=== PATIENT | female | born 1950 | race Caucasian/White ===

== ENCOUNTER → 2018-07-14 10:14 | Outpatient (CLI) | payer MEDICARE, SELFPAY ==
--- NOTE | 2018-07-14 | DI.CT.S_ITS ---
PROCEDURE: CT SINUS SCREEN WO CON INDICATIONS: SINUS PRESSURE TECHNIQUE: Noncontrast 3.0 mm axial images acquired from the frontal sinuses to the mid-sella, with coronal and sagittal reformats. For radiation dose reduction, the following was used: automated exposure control, adjustment of mA and/or kV according to patient size. COMPARISON: [facility], CT, SINUS SCREEN WO CONTRAST, 03/09/2017, 12:11. FINDINGS: Image quality: Excellent. Maxillary Sinuses: No bony remodeling or destruction. Sinuses are clear. Ethmoid Air Cells: No bony remodeling or destruction. Sinuses are clear. Sphenoid Sinuses: No bony remodeling or destruction. Sinuses are clear. Frontal Sinuses: No bony remodeling or destruction. Sinuses are clear. Ostiomeatal Complexes: Ostiomeatal complexes are patent. No Luis cells. Miscellaneous: Visualized intra-orbital contents are normal. Left middle turbinate susana bullosa is present. Mild rightward nasal septal deviation. IMPRESSION: 1. Left middle turbinate susana bullosa. 2. No evidence of sinusitis. Dictated by: Jose J Sarah M.D. on 07/14/2018 at 10:58 Approved by: Jose J Sarah M.D. on 07/14/2018 at 11:01
== END ==
PROVIDERS: PCP Family Medicine; Visit Provider Student in an Organized Health Care Education/Training Program
DX: J34.89 Other specified disorders of nose and nasal sinuses (principal); J34.3 Hypertrophy of nasal turbinates
CPT/HCPCS: 70486

== ENCOUNTER → 2018-08-21 13:38 | Outpatient (CLI) | payer MEDICARE, SELFPAY | PROVIDERS: PCP Family Medicine; Visit Provider Physician Assistant | DX: N30.01 Acute cystitis with hematuria (principal) | CPT/HCPCS: 87077; 87086; 87186 ==

== ENCOUNTER 2019-05-02 15:24 | Emergency (ER) | payer MEDICARE, SELFPAY ==
[2019-05-02 15:25] VITALS: BP 143/58; PULSE 96; RESP 16; TEMP 36.7; O2SAT 100
--- NOTE | 2019-05-02 15:30 | ED.GENADULT ---
HPI - General Adult General Chief complaint: Skin/Abscess/Foreign Body Stated complaint: LT FOOT INJURY Time Seen by Provider: 05/02/19 15:30 Source: patient Mode of arrival: ambulatory Limitations: no limitations History of Present Illness HPI narrative: 68-year-old female here for evaluation of a cut to the top of her left foot. Patient states she dropped a serrated butter knife on the top of her foot prior to arrival. States she cannot get the bleeding to stop so that is why she came into the emergency department. She states that her last tetanus shot was in 2017. No other injuries from the event. Related Data Home Medications Medication Instructions Recorded Confirmed [vitamin d] 5,000 iu PO QDAY #0 02/01/17 02/02/19 aspirin 325 mg PO QDAY #0 02/01/17 02/02/19 trazodone 100 mg tablet 100 mg PO BID tab 02/02/19 Previous Rx's Medication Instructions Recorded Spacer: Inhaler Spacer Device u INH #1 09/23/16 venlafaxine [Effexor XR] 75 mg PO QDAY #30 cap 07/21/17 beclomethasone dipropionate [Qvar] 2 puff INH BID #1 inh 10/06/17 levothyroxine 50 mcg tablet 50 mcg PO QAM #90 tab 10/23/18 simvastatin 20 mg tablet 20 mg PO QDAY #90 tab 02/08/19 Allergies Allergy/AdvReac Type Severity Reaction Status Date / Time amitriptyline [AMITRIPTYLINE] AdvReac Mild Nightmares Verified 02/02/19 14:24 (30mg+) Review of Systems Constitutional Denies fever(s) Musculoskeletal Denies tingling Comments: Pain to the top of the left foot Integumentary/Breasts Comments: Cut the top of the left foot Neurologic Denies tingling Hematologic/Lymphatic Denies easy bleeding and Denies easy bruising [facility] Medical History Hypothyroid (Acute) Social History Smoking Status: Never smoker Social History Smoking Status: Never smoker Exam Initial Vital Signs Initial Vital Signs: Vital Signs Temperature 98.1 F 05/02/19 15:25 Pulse Rate 96 H 05/02/19 15:25 Respiratory Rate 16 05/02/19 15:25 Blood Pressure 143/58 H 05/02/19 15:25 Pulse Oximetry 100 05/02/19 15:25 Const General: cooperative, comfortable, well developed and well groomed Cardio Pulses: dorsalis pedis present on the left Skin Other: 1 cm laceration to the dorsum of the left foot Neuro Other: Sensation intact to light touch left foot Extrem Other: Left ankle unremarkable Procedures Laceration Repair Laceration 1: Site: other (Left foot) Side (If applicable): left Size (cm): 1 Description: linear Depth: simple, single layer Local Anesthetic: lidocaine 1% and with bicarb Amount of anesthesia used (mL): 2 Pre-repair: wound explored, irrigated extensively and deep structures intact Skin layer closed with: nylon Size (cm): 4-0 Number of sutures: 1 Technique: simple, interrupted Course Vital Signs - 8 hr 05/02/19 15:25 05/02/19 16:04 Temperature 98.1 F Pulse Rate 96 H 60 Respiratory Rate 16 15 Blood Pressure 143/58 H Blood Pressure [Left Arm] 119/54 L Pulse Oximetry 100 95 Medical Decision Making MDM Narrative Medical decision making narrative: Neurovascular intact. She is up-to-date on tetanus. Was a linear cut. Informed patient that we could do nothing more we could place 1 stitch to allow drainage. She opted for the stitch. Informed her that she would have a scar. We gave return precautions and follow-up instructions. She expressed understanding and agreement plan. Discharge Plan Departure Patient Disposition: Home Clinical Impression: Foot laceration Qualifiers: Encounter type: initial encounter Laterality: left Qualified Code(s): S91.312A - Laceration without foreign body, left foot, initial encounter Discharge Date/Time: 05/02/19 16:05 Interventions: ED Discharge Assessment Last Done: 05/02/19 16:05 Instructions: DI for Laceration Repair -- Simple Activity Restrictions/Additional Instructions: The stitches do need to be removed in 7-10 days. You can shower like normal. You can use soap and water like normal. Do not soak your foot in anything. Expect some oozing however if bleeding occurs return to the emergency department. Prescriptions: No Action trazodone 100 mg tablet 100 mg PO BID RF: 0 Spacer: Inhaler Spacer Device INH Qty: 1 RF: 0 aspirin 325 MG tablet 325 mg PO QDAY Qty: 0 RF: 0 [vitamin d] 5,000 iu PO QDAY Qty: 0 RF: 0 venlafaxine [Effexor XR] 75 MG capsule,extended release 24hr 75 mg PO QDAY Qty: 30 RF: 1 beclomethasone dipropionate [Qvar] 80 MCG/PUFF aerosol 2 puff INH BID Qty: 1 RF: 3 levothyroxine 50 mcg tablet 50 mcg PO QAM Qty: 90 RF: 0 simvastatin 20 mg tablet 20 mg PO QDAY Qty: 90 RF: 0
[2019-05-02 16:04] VITALS: BP 119/54; PULSE 60; RESP 15; O2SAT 95
== END 2019-05-02 16:05 | disposition home or self-care (01) ==
PROVIDERS: Emergency Provider Emergency Medicine
DX: S91.312A Laceration without foreign body, left foot, initial encounter (principal); W26.0XXA Contact with knife, initial encounter
CPT/HCPCS: 12001; 99282; 99283

== ENCOUNTER → 2019-12-14 12:31 | Outpatient (CLI) | payer MEDICARE, SELFPAY ==
--- NOTE | 2019-12-14 12:34 | DI.RAD.S_ITS ---
PROCEDURE: XR CHEST 2V INDICATIONS: intermittent shortness of breath and cough TECHNIQUE: 2 views of the chest were acquired. COMPARISON: [facility], , CHEST 2 VIEW, 11/24/2017, 15:54. FINDINGS: Surgical changes and devices: None. Lungs and pleura: Lungs are clear. No pleural effusions or pneumothorax. Mediastinum: Mediastinal contours are normal. Heart size is normal. Bones and chest wall: No suspicious bony abnormalities. Soft tissues appear unremarkable. IMPRESSION: No acute pulmonary process. Dictated by: Janeth Melo M.D. on 12/14/2019 at 16:21 Approved by: Janeth Melo M.D. on 12/14/2019 at 16:21
== END ==
PROVIDERS: PCP Nurse Practitioner; Visit Provider Nurse Practitioner
DX: R05 Cough (principal); R06.02 Shortness of breath
CPT/HCPCS: 71046

== ENCOUNTER → 2019-12-17 09:14 | Outpatient (CLI) | payer MEDICARE, SELFPAY ==
[2019-12-17 10:34] LABS: Alanine Aminotransferase 12 IU/L (<35); Albumin Globulin Ratio 1.3 (1.0-2.8); Alkaline Phosphatase 57 U/L (38-126); Aspartate Aminotransferase 22 IU/L (14-36); BUN Creatinine Ratio 12.7 (6-22); Bilirubin Total 0.4 mg/dL (0.2-1.3); Blood Urea Nitrogen 14 mg/dL (7-17); Calcium 9.1 mg/dL (8.4-10.2); Carbon Dioxide 31 mmol/L (22-32); Chloride 105 mmol/L (98-107); Cholesterol 172 mg/dL (140-199); Estimated Glomerular Filt Rate 49.5 mL/min (>60); Globulin 3.2 g/dL (1.7-4.1); Glucose 99 mg/dL (80-110); HDL Cholesterol 49 mg/dL (40-60); HEMOLYSIS < 15 (0-50); LDL Cholesterol Calculated 97 mg/dL (<100); Potassium 4.1 mmol/L (3.4-5.1); Sodium 142 mmol/L (137-145); Total Protein 7.2 g/dL (6.3-8.2); Triglycerides 129 mg/dL (35-150)
[2019-12-17 11:27] LABS: Thyroid Stimulating Hormone 2.93 uIU/mL (0.47-4.68)
== END ==
PROVIDERS: PCP Nurse Practitioner; Visit Provider Nurse Practitioner
DX: E03.9 Hypothyroidism, unspecified (principal); E78.5 Hyperlipidemia, unspecified; R03.0 Elevated blood-pressure reading, without diagnosis of hypertension; Z79.899 Other long term (current) drug therapy
CPT/HCPCS: 36415; 80053; 80061; 84443

== ENCOUNTER → 2019-12-28 11:42 | Outpatient (CLI) | payer MEDICARE, SELFPAY ==
[2019-12-28 15:34] LABS: Creatinine Urine Random 241.2 mg/dL
[2019-12-28 15:39] LABS: Microalbumi Creatinin Ratio Ur 31.9 ug/mg CR (<30); Microalbumin Urine Random 7.7 mg/dL (0-1.6)
== END ==
PROVIDERS: PCP Nurse Practitioner; Referring Provider Nurse Practitioner; Visit Provider Nurse Practitioner
DX: I10 Essential (primary) hypertension (principal); N18.3 Chronic kidney disease, stage 3 (moderate)
CPT/HCPCS: 82043; 82570

== ENCOUNTER → 2020-06-04 11:53 | Outpatient (CLI) | payer MEDICARE, SELFPAY ==
[2020-06-04 13:14] LABS: Add Manual Diff / Slide Review NO; Basophils Absolute Auto 0 /uL (0-100); Basophils Percent Auto 0.7 % (0-2); Eosinophils Absolute Auto 100 /uL (0-450); Eosinophils Percent Auto 2.1 % (2-4); Hematocrit 42.3 % (36-46); Hemoglobin 14.1 g/dL (12.0-16.0); Lymphocytes Absolute Auto 1500 /uL (1100-4500); Lymphocytes Percent Auto 33.3 % (25-40); Mean Corpuscular HGB Conc 33.3 % (30-36); Mean Corpuscular Hemoglobin 29.3 PG (26-34); Mean Corpuscular Volume 87.9 fL (80-100); Monocytes Absolute Auto 300 /uL (0-900); Monocytes Percent Auto 5.8 % (3-14); Neutrophils Absolute Auto 2600 /uL (1500-7000); Neutrophils Percent Auto 58.1 % (50-75); Platelet Count 212 X10^3/uL (150-400); Red Blood Cell Count 4.81 X10^6/uL (4.0-5.2); Red Cell Distribution Width 13.7 % (11.6-14.8); White Blood Cell Count 4.5 X10^3/uL (4.5-11.0)
[2020-06-04 14:06] LABS: Thyroid Stimulating Hormone 3.33 uIU/mL (0.47-4.68)
[2020-06-04 14:14] LABS: Alanine Aminotransferase 13 IU/L (<35); Albumin 3.9 g/dL (3.5-5.0); Albumin Globulin Ratio 1.5 (1.0-2.8); Alkaline Phosphatase 65 U/L (38-126); Aspartate Aminotransferase 24 IU/L (14-36); BUN Creatinine Ratio 13.2 (6-22); Bilirubin Total 0.5 mg/dL (0.2-1.3); Blood Urea Nitrogen 15 mg/dL (7-17); Calcium 9.4 mg/dL (8.4-10.2); Carbon Dioxide 32 mmol/L (22-32); Chloride 104 mmol/L (98-107); Cholesterol 172 mg/dL (140-199); Estimated Glomerular Filt Rate 47.4 mL/min (>60); Globulin 2.6 g/dL (1.7-4.1); Glucose 91 mg/dL (80-110); HDL Cholesterol 51 mg/dL (40-60); HEMOLYSIS < 15 (0-50); LDL Cholesterol Calculated 85 mg/dL (<100); Potassium 4.5 mmol/L (3.4-5.1); Sodium 140 mmol/L (137-145); Total Protein 6.5 g/dL (6.3-8.2); Triglycerides 182 mg/dL (35-150)
[2020-06-04 14:56] LABS: Hemoglobin A1C% w Est Avg Glu 5.5 % (4.0-6.0)
[2020-06-04 16:34] LABS: Creatinine Urine Random 165.5 mg/dL
[2020-06-04 16:39] LABS: Microalbumi Creatinin Ratio Ur 3.6 ug/mg CR (<30); Microalbumin Urine Random < 0.6 mg/dL (0-1.6)
== END ==
PROVIDERS: PCP Nurse Practitioner; Referring Provider Nurse Practitioner; Visit Provider Nurse Practitioner
DX: E03.9 Hypothyroidism, unspecified (principal); E78.5 Hyperlipidemia, unspecified; I10 Essential (primary) hypertension; R06.02 Shortness of breath; R53.83 Other fatigue
CPT/HCPCS: 36415; 80053; 80061; 82043; 82570; 83036; 84443; 85025

== ENCOUNTER → 2020-08-04 15:04 | Outpatient (CLI) | payer MEDICARE, SELFPAY ==
[2020-08-04 18:02] LABS: Hep C Virus Ab w/Reflex Quant NEGATIVE s/c (NEGATIVE)
== END ==
PROVIDERS: PCP Nurse Practitioner; Referring Provider Nurse Practitioner; Visit Provider Nurse Practitioner
DX: Z11.59 Encounter for screening for other viral diseases (principal); Z91.89 Other specified personal risk factors, not elsewhere classified
CPT/HCPCS: 36415; 86803

== ENCOUNTER → 2020-09-19 16:48 | Outpatient (CLI) | payer MEDICARE, SELFPAY | PROVIDERS: PCP Nurse Practitioner; Visit Provider Registered Nurse | DX: R39.9 Unspecified symptoms and signs involving the genitourinary system (principal) | CPT/HCPCS: 87086 ==

== ENCOUNTER → 2020-09-24 14:41 | Outpatient (CLI) | payer MEDICARE, SELFPAY ==
--- NOTE | 2020-09-24 14:42 | DI.US.S_ITS ---
PROCEDURE: US PELVIC COMPLETE INDICATIONS: intermittent bilateral pelvic pain s/p total hysterectomy TECHNIQUE: Real-time scanning was performed of the pelvic organs, with image documentation. Additional endovaginal scanning was necessary due to incomplete visualization of the adnexal and endometrial structures by transabdominal scanning. COMPARISON: [facility], , PELVIC COMPLETE, 03/08/2017, 13:43. FINDINGS: Transabdominal scanning: Limited scanning through the kidneys shows no hydronephrosis. No pathologic free abdominal or pelvic fluid. Endovaginal scanning: Uterus: Uterus is resected. Ovaries: Right and left ovaries are reportedly removed. IMPRESSION: Hysterectomy and bilateral oophorectomy. Incidental note is made of a cyst structure measuring up to 6.1 cm at the upper pole of the left kidney, and the right kidney appears relatively small when compared to the left at 8.7 cm versus 10.4 cm. Follow-up by CT scanning may become necessary. Dictated by: Daljit Wolf M.D. on 09/24/2020 at 16:07 Approved by: Daljit Wolf M.D. on 09/24/2020 at 16:09
== END ==
PROVIDERS: PCP Nurse Practitioner; Referring Provider Nurse Practitioner; Visit Provider Nurse Practitioner
DX: R10.2 Pelvic and perineal pain (principal); N28.1 Cyst of kidney, acquired; Z13.820 Encounter for screening for osteoporosis; M85.851 Other specified disorders of bone density and structure, right thigh; Z78.0 Asymptomatic menopausal state; E07.9 Disorder of thyroid, unspecified; Z90.710 Acquired absence of both cervix and uterus; Z90.722 Acquired absence of ovaries, bilateral; Z82.62 Family history of osteoporosis
CPT/HCPCS: 76830; 76856; 77080

== ENCOUNTER → 2020-10-08 13:16 | Outpatient (CLI) | payer MEDICARE, SELFPAY ==
[2020-10-08 14:38] LABS: BUN Creatinine Ratio 14.2 (6-22); Blood Urea Nitrogen 15 mg/dL (7-17); Calcium 9.1 mg/dL (8.4-10.2); Carbon Dioxide 30 mmol/L (22-32); Chloride 104 mmol/L (98-107); Estimated Glomerular Filt Rate 51.6 mL/min (>60); Glucose 95 mg/dL (80-110); HEMOLYSIS < 15 (0-50); Sodium 138 mmol/L (137-145)
== END ==
PROVIDERS: PCP Nurse Practitioner; Referring Provider Nurse Practitioner; Visit Provider Nurse Practitioner
DX: N28.1 Cyst of kidney, acquired (principal); Z01.812 Encounter for preprocedural laboratory examination
CPT/HCPCS: 36415; 80048

== ENCOUNTER → 2020-10-15 16:43 | Outpatient (CLI) | payer MEDICARE, SELFPAY ==
--- NOTE | 2020-10-15 16:45 | DI.MG.S_ITS ---
BILATERAL DIGITAL SCREENING MAMMOGRAM 3D/2D WITH CAD: 10/15/2020 CLINICAL: Routine screening. Comparison is made to exams dated: 03/04/2018 mammogram, 10/07/2016 mammogram, and 06/06/2012 mammogram - [facility]. There are scattered fibroglandular elements in both breasts. Current study was also evaluated with a Computer Aided Detection (CAD) system. There are benign calcifications in the right breast. No significant masses, calcifications, or other findings are seen in either breast. There has been no significant interval change. IMPRESSION: BENIGN There is no mammographic evidence of malignancy. A 1 year screening mammogram is recommended. This exam was interpreted at Station ID: [id number]. NOTE: For mammograms, a report in lay terms will be sent to the patient. Approximately 15% of breast malignancies will not be visualized mammographically. In the management of a palpable breast mass, a negative mammogram must not discourage biopsy of a clinically suspicious lesion. Electronically Signed By: Coleen davies/charlene:10/21/2020 15:58:24 letter sent: Normal Exam ACR BI-RADS Category 2: Benign Finding(s) [id number]
== END ==
PROVIDERS: PCP Nurse Practitioner; Referring Provider Nurse Practitioner; Visit Provider Nurse Practitioner
DX: Z12.31 Encounter for screening mammogram for malignant neoplasm of breast (principal)
CPT/HCPCS: 77063; 77067

== ENCOUNTER → 2021-02-02 08:03 | Outpatient (CLI) | payer MEDICARE, SELFPAY ==
[2021-02-02 08:18] LABS: RBC Urine None Seen (0-5/HPF)
[2021-02-02 09:51] LABS: Appearance Urine UA CLEAR; Bilirubin Urine UA NEGATIVE (NEGATIVE); Color Urine UA YELLOW; Glucose Urine UA NEGATIVE (Negative); Ketones Urine UA NEGATIVE (NEGATIVE); Leukocyte Esterase Urine UA NEGATIVE (NEGATIVE); Nitrite Urine UA NEGATIVE (Negative); Occult Blood Urine UA NEGATIVE (Negative); Protein Urine UA NEGATIVE (Negative); Specific Gravity Urine UA 1.025 (1.000-1.035); Urobilinogen Urine UA 0.2 E.U./dL (0.2)
[2021-02-02 09:53] LABS: Add Manual Diff / Slide Review NO; Basophils Absolute Auto 0 /uL (0-100); Basophils Percent Auto 0.5 % (0-2); Eosinophils Absolute Auto 0 /uL (0-450); Eosinophils Percent Auto 0.1 % (2-4); Hematocrit 43.5 % (36-46); Hemoglobin 14.4 g/dL (12.0-16.0); Lymphocytes Absolute Auto 1100 /uL (1100-4500); Mean Corpuscular HGB Conc 33.2 % (30-36); Mean Corpuscular Hemoglobin 29.1 PG (26-34); Mean Corpuscular Volume 87.8 fL (80-100); Monocytes Absolute Auto 200 /uL (0-900); Monocytes Percent Auto 3.3 % (3-14); Neutrophils Absolute Auto 4600 /uL (1500-7000); Neutrophils Percent Auto 77.1 % (50-75); Platelet Count 215 X10^3/uL (150-400); Red Blood Cell Count 4.95 X10^6/uL (4.0-5.2); Red Cell Distribution Width 14.2 % (11.6-14.8)
[2021-02-02 10:01] LABS: Amorphous Sediment Urine 1+; Bacteria Urine Moderate (10-30); Culture Indicated Urine Cult Not Indicated; Squamous Epithelial Cell Urine 10-30 /HPF (0-5/HPF); WBC Urine 1-5/HPF (0-5/HPF)
[2021-02-02 10:06] LABS: Alanine Aminotransferase 13 IU/L (<35); Albumin 3.9 g/dL (3.5-5.0); Albumin Globulin Ratio 1.3 (1.0-2.8); Alkaline Phosphatase 58 U/L (38-126); Aspartate Aminotransferase 20 IU/L (14-36); Bilirubin Total 0.5 mg/dL (0.2-1.3); Blood Urea Nitrogen 15 mg/dL (7-17); Carbon Dioxide 27 mmol/L (22-32); Chloride 106 mmol/L (98-107); Cholesterol 165 mg/dL (140-199); Globulin 2.9 g/dL (1.7-4.1); Glucose 106 mg/dL (80-110); HDL Cholesterol 48 mg/dL (40-60); HEMOLYSIS < 15 (0-50); LDL Cholesterol Calculated 97 mg/dL (<100); Sodium 137 mmol/L (137-145); Total Protein 6.8 g/dL (6.3-8.2); Triglycerides 100 mg/dL (35-150)
[2021-02-02 11:25] LABS: Thyroid Stimulating Hormone 1.55 uIU/mL (0.47-4.68)
[2021-02-05 04:34] LABS: Metanephrine,Plasma 21.3 pg/mL (0.0-88.0)
[2021-02-10 12:45] LABS: Aldosterone/Renin Activity Rat 7.8 (0.0-30.0); Plama Renin, LC/MS/MS 0.729 ng/mL/hr (0.167-5.380)
== END ==
PROVIDERS: PCP Nurse Practitioner; Referring Provider Nurse Practitioner; Visit Provider Nurse Practitioner
DX: D35.00 Benign neoplasm of unspecified adrenal gland (principal); N39.0 Urinary tract infection, site not specified; I10 Essential (primary) hypertension; D35.02 Benign neoplasm of left adrenal gland; E03.9 Hypothyroidism, unspecified; F41.8 Other specified anxiety disorders; G47.00 Insomnia, unspecified; R53.82 Chronic fatigue, unspecified; R23.2 Flushing
CPT/HCPCS: 36415; 80053; 80061; 81001; 82088; 82533; 83735; 83835; 84244; 84443; 85025

== ENCOUNTER → 2021-05-06 13:09 | Outpatient (CLI) | payer MEDICARE, SELFPAY ==
[2021-05-06 13:27] LABS: Appearance Urine UA SL CLOUDY; Bacteria Urine None Seen; Bilirubin Urine UA NEGATIVE (NEGATIVE); Color Urine UA YELLOW; Glucose Urine UA NEGATIVE (Negative); Ketones Urine UA NEGATIVE (NEGATIVE); Leukocyte Esterase Urine UA 1+ (NEGATIVE); Nitrite Urine UA NEGATIVE (Negative); Occult Blood Urine UA NEGATIVE (Negative); Protein Urine UA TRACE (Negative); RBC Urine None Seen (0-5/HPF); Specific Gravity Urine UA 1.025 (1.000-1.035); Urobilinogen Urine UA 0.2 E.U./dL (0.2)
[2021-05-06 13:32] LABS: Culture Indicated Urine Cult Not Indicated; Squamous Epithelial Cell Urine >30 /HPF (0-5/HPF); WBC Urine 5-10/HPF (0-5/HPF)
[2021-05-06 17:24] LABS: Thyroid Stimulating Hormone 3.42 uIU/mL (0.47-4.68)
== END ==
PROVIDERS: PCP Nurse Practitioner; Referring Provider Nurse Practitioner; Visit Provider Nurse Practitioner
DX: R30.0 Dysuria (principal); E03.9 Hypothyroidism, unspecified; R53.82 Chronic fatigue, unspecified; Z79.899 Other long term (current) drug therapy
CPT/HCPCS: 36415; 81003; 81015; 84443; 87077; 87086; 87186

== ENCOUNTER → 2021-07-09 14:30 | Outpatient (CLI) | payer MEDICARE, SELFPAY ==
[2021-07-09 14:58] LABS: Bilirubin Urine UA NEGATIVE (NEGATIVE); Color Urine UA YELLOW; Glucose Urine UA TRACE g/dL (Negative); Ketones Urine UA NEGATIVE (NEGATIVE); Leukocyte Esterase Urine UA 1+ (NEGATIVE); Nitrite Urine UA NEGATIVE (Negative); Occult Blood Urine UA 2+ (Negative); Protein Urine UA NEGATIVE (Negative); Specific Gravity Urine UA <=1.005 (1.000-1.035); Urobilinogen Urine UA 0.2 E.U./dL (0.2)
[2021-07-09 15:52] LABS: Appearance Urine UA Slightly Cloudy
[2021-07-09 15:55] LABS: Amorphous Sediment Urine 1+; Bacteria Urine Few (2-10); RBC Urine 1-5/HPF (0-5/HPF); Squamous Epithelial Cell Urine 1-5 /HPF (0-5/HPF); WBC Urine 5-10/HPF (0-5/HPF)
[2021-07-09 15:56] LABS: Culture Indicated Urine Specimen Cultured
== END ==
PROVIDERS: PCP Nurse Practitioner; Referring Provider Nurse Practitioner; Visit Provider Nurse Practitioner
DX: N39.0 Urinary tract infection, site not specified (principal)
CPT/HCPCS: 81001; 87077; 87086; 87186